=== PATIENT | female | born 2000 | race African-American/Black ===

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

== ENCOUNTER 2019-01-08 23:22 | Emergency (ER) | payer BC ==
[~2019-01-08] VITALS: Ht 175.3 cm; Wt 100.2 kg
[~2019-01-08 23:22] MED LIST changes: +JUNEL FE 1-201 EACH PO; +MOBIC7.5 MG PO
[2019-01-08] MEDS ORDERED: NOHOMEMEDICATIONS (23:50)
[2019-01-09 00:09] LABS: ABSOLUTE NEUTROPHILS 4.1 thou/uL (1.4-8.2); BASOPHILS 0.9 % (0.0-2.0); EOSINOPHILS 1.6 % (0.0-3.0); HEMATOCRIT 38.5 % (37.0-47.0); HEMOGLOBIN 12.7 gm/dL (12.0-15.0); LYMPHOCYTES 39.1 % (24.0-44.0); MCH 25.5 pg (26.0-34.0); MCHC 32.9 g/dL (28.0-37.0); MCV 77.6 fL (80.0-100.0); MONOCYTES 9.4 % (1.0-8.0); PLATELET COUNT 261 thou/uL (150-400); RBC 4.96 mil/uL (4.20-5.00); RDW 13.8 % (10.5-14.5); WBC 8.3 thou/uL (4.0-11.0)
[2019-01-09] MEDS ORDERED: BENTYL 20 MG TA20 M1 PO (00:10)
[2019-01-09] MEDS ORDERED: ONDANSETRON HCL4 M2 PO (00:10)
[2019-01-09 00:16] LABS: CALCIUM 9.5 mg/dL (8.5-10.1); CREATININE 0.7 mg/dL (0.6-1.0); POTASSIUM 3.9 mmol/L (3.5-5.1)
[2019-01-09 00:17] LABS: URINE BILIRUBIN NEGATIVE (Negative); URINE BLOOD NEGATIVE (Negative); URINE CLARITY CLEAR; URINE COLOR YELLOW; URINE GLUCOSE-RANDOM* NEGATIVE (Negative); URINE KETONES NEGATIVE (Negative); URINE LEUKOCYTES-REFLEX NEGATIVE (Negative); URINE NITRITE-REFLEX NEGATIVE (Negative); URINE PROTEIN (DIPSTICK) NEGATIVE (Negative); URINE SPECIFIC GRAVITY 1.025 (1.005-1.035); URINE UROBILINOGEN 0.2 E.U./dl (0.2-1.0)
[2019-01-09 00:22] LABS: ALBUMIN 3.8 g/dL (3.4-5.0); TOTAL BILIRUBIN 0.4 mg/dL (<0.1-1.0); TOTAL PROTEIN 7.8 g/dL (6.4-8.2)
[2019-01-09 00:57] VITALS: BP 126/82
== END 2019-01-09 01:17 | disposition home or self-care (01) ==
LOC: ER 23:22
PROVIDERS: Emergency Medicine
DX: R10.84 Generalized abdominal pain (principal); J45.909 Unspecified asthma, uncomplicated

== ENCOUNTER 2019-07-14 09:18 | Emergency (ER) | payer BC ==
[~2019-07-14] VITALS: Ht 175.3 cm; Wt 96.2 kg
[~2019-07-14 09:18] MED LIST changes: +BENTYL 20 MG TA20 M1 PO; +NOHOMEMEDICATIONS
[2019-07-14 09:37] LABS: URINE BILIRUBIN NEGATIVE (Negative); URINE BLOOD NEGATIVE (Negative); URINE CLARITY CLEAR; URINE COLOR YELLOW; URINE GLUCOSE-RANDOM* NEGATIVE (Negative); URINE KETONES NEGATIVE (Negative); URINE LEUKOCYTES-REFLEX NEGATIVE (Negative); URINE NITRITE-REFLEX NEGATIVE (Negative); URINE PROTEIN (DIPSTICK) NEGATIVE (Negative); URINE SPECIFIC GRAVITY >= 1.030 (1.005-1.035); URINE UROBILINOGEN 0.2 E.U./dl (0.2-1.0)
[2019-07-14 09:44] LABS: ABSOLUTE NEUTROPHILS 4.4 thou/uL (1.4-8.2); BASOPHILS 0.5 % (0.0-2.0); EOSINOPHILS 0.6 % (0.0-3.0); HEMOGLOBIN 12.8 gm/dL (12.0-15.0); LYMPHOCYTES 26.3 % (24.0-44.0); MCH 25.4 pg (26.0-34.0); MCHC 32.9 g/dL (28.0-37.0); MCV 77.3 fL (80.0-100.0); MONOCYTES 8.7 % (1.0-8.0); PLATELET COUNT 254 thou/uL (150-400); POLYS 63.9 % (36.0-66.0); RBC 5.04 mil/uL (4.20-5.00); RDW 13.5 % (10.5-14.5); WBC 6.8 thou/uL (4.0-11.0)
[2019-07-14] MEDS ORDERED: NAPROSYN500 MG PO (09:44)
[2019-07-14] MEDS ORDERED: TRI-LO-MARZIA1 EACH PO (09:45)
[2019-07-14 10:05] LABS: CREATININE 0.7 mg/dL (0.6-1.0); POTASSIUM 3.9 mmol/L (3.5-5.1)
[2019-07-14 10:14] LABS: ALBUMIN 3.8 g/dL (3.4-5.0); DIRECT BILIRUBIN 0.1 mg/dL (<0.1-0.2); TOTAL BILIRUBIN 0.7 mg/dL (<0.1-1.0); TOTAL PROTEIN 8.1 g/dL (6.4-8.2)
[2019-07-14] MEDS ORDERED: BENTYL 20 MG TA20 M1 PO (11:28)
[2019-07-14 11:38] VITALS: BP 105/67
== END 2019-07-14 11:39 ==
LOC: ER 09:18
PROVIDERS: Emergency Medicine
DX: R10.84 Generalized abdominal pain (principal); J45.909 Unspecified asthma, uncomplicated

== ENCOUNTER 2019-09-07 23:44 | Emergency (ER) | payer BC ==
[~2019-09-07] VITALS: Ht 175.3 cm; Wt 97.5 kg
[~2019-09-07 23:44] MED LIST changes: +TRI-LO-MARZIA1 EACH PO
[2019-09-07] MEDS ORDERED: NAPROSYN500 M1 PO (23:59)
[2019-09-08] MEDS ORDERED: PREDNISONE 20 M20 M1 PO
[2019-09-08 01:37] VITALS: BP 112/82
== END 2019-09-08 01:45 | disposition home or self-care (01) ==
LOC: ER 23:44
DX: B34.9 Viral infection, unspecified (principal); J02.9 Acute pharyngitis, unspecified; J45.909 Unspecified asthma, uncomplicated

== ENCOUNTER 2020-02-28 17:26 | Emergency (ER) | payer BC ==
[~2020-02-28] VITALS: Ht 175.3 cm; Wt 90.7 kg
[~2020-02-28 17:26] MED LIST changes: +NAPROSYN500 M1 PO; +PREDNISONE 20 M20 M1 PO
[2020-02-28] MEDS ORDERED: AUGMENTIN 875-1 EACH PO (19:00)
[2020-02-28] MEDS ORDERED: IBU600 MG PO (19:00)
[2020-02-28 19:15] VITALS: BP 130/67
--- NOTE | 2020-02-29 07:44 | EKG ---
[facility] [place] [address] [place] [address] ELECTROCARDIOGRAM REPORT Name: MARIA A GRANGER Room #: [facility]..#: [id number] Admission: 02/28/20 Attend Phys: Discharge: 02/28/20 Date of : [birth year] Report #: [id number] THIS REPORT FOR: cc: Salvatore Cano MD, Neal A. MD Santiago, Patrick MD [facility] ~ THIS REPORT FOR: //name// [facility] ED Test Date: 2020-02-28 Test Time: 17:34:59 Pat Name: MARIA A GRANGER Department: Room: Gender: F Director Stage: : 2000 Requested By: Aimee Becker Order Number: [id number] MD: Julien Parmar Measurements Intervals [place] Rate: 134 P: 53 [place]: 135 QRS: 49 QRSD: 73 T: 8 QT: 270 QTc: 403 Interpretive Statements Sinus tachycardia Borderline T abnormalities, anterior leads Compared to ECG 09/05/2018 10:21:32 T-wave abnormality now present Sinus rhythm no longer present Electronically Signed On 02-29-2020 7:43:59 CDT by Julien Parmar [email or web address] <ELECTRONICALLY SIGNED> By: Julien Parmar MD, FAC 02/29/20 0743 1734 1734 Julien Parmar MD, [facility] /EPI
== END 2020-02-28 19:15 | disposition home or self-care (01) ==
LOC: ER 17:26
DX: J03.90 Acute tonsillitis, unspecified (principal); J45.909 Unspecified asthma, uncomplicated; Z79.899 Other long term (current) drug therapy

== ENCOUNTER 2020-03-02 18:39 | Emergency (ER) | payer BC ==
[~2020-03-02] VITALS: Ht 175.3 cm; Wt 99.8 kg
[~2020-03-02 18:39] MED LIST changes: +AUGMENTIN 875-1 EACH PO; +IBU600 MG PO
[2020-03-02] MEDS ORDERED: DOXYCYCLINE 10100 MG PO (20:10)
[2020-03-02] MEDS ORDERED: LIDOCAINE VISC100 ML SWISH&SPIT (20:17)
[2020-03-02] MEDS ORDERED: BENADRYL A12.5 MG/5 SWISH&SPIT (20:17)
[2020-03-02 20:23] VITALS: BP 118/76
== END 2020-03-02 20:25 | disposition home or self-care (01) ==
LOC: ER 18:39
DX: K05.10 Chronic gingivitis, plaque induced (principal); J45.909 Unspecified asthma, uncomplicated; Z79.899 Other long term (current) drug therapy

== ENCOUNTER 2020-03-04 10:39 | Emergency (ER) | payer BC ==
[~2020-03-04] VITALS: Ht 175.3 cm; Wt 90.7 kg
[~2020-03-04 10:39] MED LIST changes: +BENADRYL A12.5 MG/5 SWISH&SPIT; +DOXYCYCLINE 10100 MG PO; +LIDOCAINE VISC100 ML SWISH&SPIT
[2020-03-04 11:10] LABS: URINE BILIRUBIN NEGATIVE (Negative); URINE BLOOD NEGATIVE (Negative); URINE CLARITY CLEAR; URINE COLOR YELLOW; URINE GLUCOSE-RANDOM* NEGATIVE (Negative); URINE KETONES 1+ (Negative); URINE LEUKOCYTES-REFLEX TRACE (Negative); URINE NITRITE-REFLEX NEGATIVE (Negative); URINE PROTEIN (DIPSTICK) NEGATIVE (Negative)
[2020-03-04 11:57] LABS: ABSOLUTE NEUTROPHILS 4.2 thou/uL (1.4-8.2); BASOPHILS 0.7 % (0.0-2.0); EOSINOPHILS 0.7 % (0.0-3.0); HEMATOCRIT 41.5 % (37.0-47.0); HEMOGLOBIN 13.7 gm/dL (12.0-15.0); LYMPHOCYTES 23.8 % (24.0-44.0); MCH 26.2 pg (26.0-34.0); MCV 79.4 fL (80.0-100.0); MONOCYTES 11.9 % (1.0-8.0); PLATELET COUNT 227 thou/uL (150-400); POLYS 62.9 % (36.0-66.0); RBC 5.22 mil/uL (4.20-5.00); RDW 13.2 % (10.5-14.5); WBC 6.6 thou/uL (4.0-11.0)
[2020-03-04 12:10] LABS: CALCIUM 8.5 mg/dL (8.5-10.1); CREATININE 0.8 mg/dL (0.6-1.0); POTASSIUM 3.9 mmol/L (3.5-5.1)
[2020-03-04 12:16] LABS: ALBUMIN 3.6 g/dL (3.4-5.0); TOTAL PROTEIN 7.7 g/dL (6.4-8.2)
[2020-03-04] MEDS ORDERED: NORCO 5-325 TA1 EAC2 PO (13:28)
[2020-03-04] MEDS ORDERED: VALTREX 500 MG500 MG PO (13:28)
[2020-03-04] MEDS ORDERED: ONDANSETRON HCL4 M2 PO (13:28)
[2020-03-04] MEDS ORDERED: MAGIC MOUTHWASH SWISH&SPIT (13:28)
[2020-03-04 13:40] VITALS: BP 122/80
== END 2020-03-04 13:40 | disposition home or self-care (01) ==
LOC: ER 10:39
PROVIDERS: Physician Assistant
DX: B00.2 Herpesviral gingivostomatitis and pharyngotonsillitis (principal); J45.909 Unspecified asthma, uncomplicated; Z79.899 Other long term (current) drug therapy

== ENCOUNTER 2020-08-05 11:27 | Emergency (ER) | payer OTHER ==
[~2020-08-05] VITALS: Ht 175.3 cm; Wt 103.0 kg
[~2020-08-05 11:27] MED LIST changes: +MAGIC MOUTHWASH SWISH&SPIT; +NORCO 5-325 TA1 EAC2 PO; +VALTREX 500 MG500 MG PO
--- NOTE | 2020-08-05 11:44 | EKG ---
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[place] : 2000 Requested By: Evin Mayes Order Number: [id number] MD: Julien Parmar Measurements Intervals [place] Rate: 78 P: 39 [place]: 149 QRS: 52 QRSD: 82 T: 16 QT: 375 QTc: 428 Interpretive Statements Sinus arrhythmia Low voltage, precordial leads Compared to ECG 02/28/2020 17:34:59 Low QRS voltage now present Sinus tachycardia no longer present T-wave abnormality no longer present Electronically Signed On 08-05-2020 11:44:41 [employer] by Julien Parmar [email or web address] <ELECTRONICALLY SIGNED> By: Julien Parmar MD, [facility] 08/05/20 1144 1141 1141 Julien Parmar MD, FACC /EPI
[2020-08-05 12:28] LABS: ABSOLUTE NEUTROPHILS 3.7 thou/uL (1.4-8.2); BASOPHILS 1.1 % (0.0-2.0); EOSINOPHILS 0.9 % (0.0-3.0); HEMATOCRIT 37.3 % (37.0-47.0); HEMOGLOBIN 12.2 gm/dL (12.0-15.0); LYMPHOCYTES 42.2 % (24.0-44.0); MCH 26.1 pg (26.0-34.0); MCHC 32.7 g/dL (28.0-37.0); MCV 79.9 fL (80.0-100.0); MONOCYTES 7.7 % (1.0-8.0); PLATELET COUNT 248 thou/uL (150-400); POLYS 48.1 % (36.0-66.0); RBC 4.67 mil/uL (4.20-5.00); RDW 13.7 % (10.5-14.5); WBC 7.6 thou/uL (4.0-11.0)
[2020-08-05 12:35] LABS: ANION GAP 7 mmol/L (7-16); BUN 8 mg/dL (7-18); CALCIUM 8.6 mg/dL (8.5-10.1); CHLORIDE 100 mmol/L (98-107); CO2 27 mmol/L (21-32); CREATININE 0.6 mg/dL (0.6-1.0); GLUCOSE 80 mg/dL (74-106); POTASSIUM 3.6 mmol/L (3.5-5.1); SODIUM 134 mmol/L (136-145)
[2020-08-05 12:45] LABS: ALBUMIN 3.9 g/dL (3.4-5.0); SGOT 19 U/L (15-37); SGPT 25 U/L (14-59); TOTAL BILIRUBIN 0.6 mg/dL (0.2-1.0); TOTAL PROTEIN 7.5 g/dL (6.4-8.2); TROPONIN-I <0.06 ng/mL (<0.06)
[2020-08-05 13:03] LABS: URINE BILIRUBIN NEGATIVE (Negative); URINE BLOOD NEGATIVE (Negative); URINE CLARITY CLEAR; URINE COLOR YELLOW; URINE GLUCOSE-RANDOM* NEGATIVE (Negative); URINE KETONES NEGATIVE (Negative); URINE LEUKOCYTES-REFLEX TRACE (Negative); URINE NITRITE-REFLEX NEGATIVE (Negative); URINE PROTEIN (DIPSTICK) NEGATIVE (Negative); URINE SPECIFIC GRAVITY <= 1.005 (1.005-1.035); URINE UROBILINOGEN 0.2 E.U./dl (0.2-1.0)
[2020-08-05] MEDS ORDERED: CARAFATE 1 GM TA1 G1 PO (14:19)
[2020-08-05] MEDS ORDERED: OMEPRAZOLE40 MG PO (14:19)
[2020-08-05 14:58] VITALS: BP 121/91
== END 2020-08-05 14:59 | disposition home or self-care (01) ==
LOC: ER 11:27
PROVIDERS: Physician Assistant
DX: K21.9 Gastro-esophageal reflux disease without esophagitis (principal); R07.9 Chest pain, unspecified; J45.909 Unspecified asthma, uncomplicated